=== PATIENT | female | born 1945 | race Caucasian/White ===

== ENCOUNTER 2017-01-23 07:02 | Emergency (ER) | payer MEDICARE ==
[2017-01-23 07:26] VITALS: BP 82/50
--- NOTE | 2017-01-23 07:44 | UC ---
General HPI - HPI Summary HPI Summary: The patient comes in today for: 1. "I think I have Lyme disease:" Onset: 3 weeks ago. Palliative/provocative: Nothing makes her symptoms better or worse. Quality: Lightheadedness, near-syncope. She states that states that she had left knee pain. The pain is "like someone is gently touching me." Region: Left knee Severity: No pain. Time: Constant knee sensation. Associated symptoms: Event: She states that about a month ago, she found two ticks on her about a day apart from the other. She thinks that they were only on her for no more 4 hours. She was easily able to take them off. She states that she has joint pain and lightheadedness in the morning. She has had this lightheadedness in the morning (only at that time). She does not have the lightheadedness at any other time. She denies any heart problems before. No palpitations or chest pain. No shortness of breath. She denies any vertigo. However, she feels like she could faint if the feeling got worse. She states that she has tick bites for no more than 12 hours about 9 months ago. She has not had any Lyme blood tests before. Blood pressure: She states that her usual blood pressure reading is 80/ 60. She states that she has had this "all my life." Dizziness: She also complains of "dizziness" in the morning. Pressing her for what this means, she was able to say that she feels like she has a "seriously light malaise." She only wants blood tests for Lyme disease today. She states that she does not have any rashes at this time. * - History of Current Complaint Chief Complaint: UCLowerExtremity Stated Complaint: POSSIBLE LYME DISEASE Time Seen by Provider: 01/23/17 07:30 Hx Obtained From: Patient - Allergy/Home Medications Allergies/Adverse Reactions: Allergies Allergy/AdvReac Type Severity Reaction Status Date / Time sugar Allergy Makes Uncoded 01/23/17 07:18 patient cranky PMH/Surg Hx/FS Hx/Imm Hx Previously Healthy: Yes Endocrine History Of: Denies: Diabetes, Thyroid Disease, Hyperthyroidism, Hypothyroidism, Dyslipidemia Cardiovascular History Of: Denies: Cardiac Disorders, Hypertension, Pacemaker/ICD, Myocardial Infarction , Congestive Heart Failure, Atrial Fibrillation, Deep Vein Thrombosis, Bleeding Disorders Respiratory History Of: Denies: COPD, Asthma, Bronchitis, Pneumonia, Pulmonary Embolism GI/ History Of: Denies: Gastroesophageal Reflux, Ulcer, Gastrointestinal Bleed, Gall Bladder Disease, Kidney Stones, Diverticulitis, Renal Disease, Urosepsis Neurological History Of: Denies: TIA, CVA, Dementia, Seizures, Migraine Psychological History Of: Denies: Anxiety, Depression, Bipolar Disorder, Schizophrenia, Post Traumatic Stress Disorder Cancer History Of: Denies: Lung Cancer, Colorectal Cancer, Breast Cancer, Prostate Cancer, Cervical Cancer Other History Of: Negative For: HIV, Hepatitis B, Hepatitis C, Anticoagulant Therapy - Surgical History Surgical History: Yes Surgery Procedure, Year, and Place: Laproscopically tied her bilateral fallopian tubes - Family History Known Family History: Positive: Cardiac Disease Negative: Hypertension - Social History Occupation: Employed Full-time Alcohol Use: None Substance Use Type: None Smoking Status (MU): Never Smoked Tobacco Review of Systems Constitutional: Negative Skin: Negative Eyes: Negative ENT: Negative Respiratory: Negative Cardiovascular: Negative Gastrointestinal: Negative Genitourinary: Negative All Other Systems Reviewed And Are Negative: Yes Physical Exam Triage Information Reviewed: Yes Appearance: Well-Appearing, No Pain Distress, Well-Nourished Vital Signs: Initial Vital Signs Temp 98.4 F 01/23/17 07:13 Pulse 72 01/23/17 07:13 Resp 14 01/23/17 07:13 BP 82/50 01/23/17 07:13 Pulse Ox 99 01/23/17 07:13 Vital Signs Reviewed: Yes Eyes: Positive: Conjunctiva Clear. Negative: Discharge ENT: Positive: Hearing grossly normal. Negative: Pharyngeal erythema, Nasal congestion, Nasal drainage, TM bulging, TM dull, TM red, Tonsillar swelling, Tonsillar exudate Dental: Negative: Gross Decay/Caries @, Dental Fracture @ Neck: Positive: Supple, Nontender, No Lymphadenopathy, Other: - No carotid bruits. Carotid pulses were 2+/2 x 2.. Negative: Nuchal Rigidity Respiratory: Positive: Chest non-tender, Lungs clear, No respiratory distress, No accessory muscle use. Negative: Crackles, Wheezing Cardiovascular: Positive: RRR, No Murmur Abdomen Description: Positive: Nontender, No Organomegaly, Soft. Negative: Distended, Guarding Musculoskeletal: Positive: Strength Intact, ROM Intact, No Edema Neurological: Positive: Alert, Muscle Tone Normal Psychological: Positive: Age Appropriate Behavior, Consolable Skin: Negative: rashes, breakdown Course/Dx - Course Course Of Treatment: The patient was told that I was concerned of her low blood pressure, and her complaints of near-syncope. However, she declined my recommendation for orthostatic blood pressure readings, EKG, and going to the ER. - Differential Dx - Multi-Symptom Provider Diagnoses: hypotension. Near syncope. tick bite Discharge - Discharge Plan Condition: Stable Disposition: HOME Patient Education Materials: Lyme Disease (ED), Tick Bite (ED), Near Syncope ( ED) Referrals: Louisa Madera MD [Primary Care Provider] - As Soon As Possible (If you are not going to the ER as recommended, please reconsider if you get worse. Please see your primary care provider as soon as you can for a follow-up on your symptoms.)
== END 2017-01-23 08:15 | disposition home or self-care (01) ==
LOC: UCEAST 07:02
DX: I95.9 Hypotension, unspecified (principal); R55 Syncope and collapse; T14.8 Other injury of unspecified body region; W57.XXXA Bitten or stung by nonvenomous insect and other nonvenomous arthropods, initial encounter; Y93.9 Activity, unspecified; Y99.9 Unspecified external cause status; M25.562 Pain in left knee
CPT/HCPCS: 86618; 99211; G0463

== ENCOUNTER 2019-10-03 07:02 | Emergency (ER) | payer MEDICARE ==
[2019-10-03 07:16] VITALS: BP 109/51
--- NOTE | 2019-10-03 08:04 | UC ---
Knee Pain HPI - HPI Summary HPI Summary: The patient is a 74-year-old female that is 2 weeks status post an injury to her right knee. She states that a large dog clipped her on the lateral aspect of her knee. Initially she had considerable swelling. Her swelling is gone down markedly but she stills walking with a limp. She states that prolonged walking as well as prolonged standing for the most uncomfortable for her. She has been able to navigate stairs. On occasion it feels like her knee will buckle. She denies any prior serious injury to that right knee. - History of Current Complaint Chief Complaint: UCLowerExtremity Stated Complaint: KNEE INJURY Time Seen by Provider: 10/03/19 07:31 Hx Obtained From: Patient Onset/Duration: Gradual Onset, Lasting Weeks - two Severity Initially: Moderate Severity Currently: Mild Pain Intensity: 3 Pain Scale Used: 0-10 Numeric Character: Aching Aggravating Factor(s): Prolonged Standing, Other - prolonged walking Alleviating Factor(s): Rest Associated Signs And Symptoms: Positive: Swelling Able to Bear Weight: Yes Legs: 1 - pain here - Allergies/Home Medications Allergies/Adverse Reactions: Allergies Allergy/AdvReac Type Severity Reaction Status Date / Time sugar Allergy Makes Uncoded 01/23/17 07:18 patient cranky Home Medications: Home Medications Cbd 2 oral.conc PO 10/03/19 [History] PMH/Surg Hx/FS Hx/Imm Hx Previously Healthy: Yes Other History Of: Negative For: HIV, Hepatitis B, Hepatitis C, Anticoagulant Therapy - Surgical History Surgical History: Yes Surgery Procedure, Year, and Place: Laproscopically tied her bilateral fallopian tubes - Family History Known Family History: Positive: Cardiac Disease, Non-Contributory Negative: Hypertension - Social History Alcohol Use: None Substance Use Type: None Smoking Status (MU): Never Smoked Tobacco Review of Systems All Other Systems Reviewed And Are Negative: Yes Constitutional: Positive: Negative Skin: Positive: Negative Eyes: Positive: Negative ENT: Positive: Negative Respiratory: Positive: Negative Cardiovascular: Positive: Negative Gastrointestinal: Positive: Negative Genitourinary: Positive: Negative Motor: Positive: Negative Neurovascular: Positive: Negative Musculoskeletal: Positive: Arthralgia - right knee Neurological: Positive: Negative Psychological: Positive: Negative Physical Exam Triage Information Reviewed: Yes Appearance: Well-Appearing, No Pain Distress, Well-Nourished Vital Signs: Initial Vital Signs Temp 99.7 F 10/03/19 07:11 Pulse 81 10/03/19 07:11 Resp 16 10/03/19 07:11 BP 109/51 10/03/19 07:11 Pulse Ox 100 10/03/19 07:11 Vital Signs Reviewed: Yes Eyes: Positive: Conjunctiva Clear ENT: Positive: Hearing grossly normal. Negative: Nasal congestion, Nasal drainage, Trismus, Muffled voice, Hoarse voice Dental Exam: Normal Neck: Positive: Supple, Nontender Respiratory: Positive: Lungs clear, Normal breath sounds, No respiratory distress, No accessory muscle use Cardiovascular: Positive: RRR, No Murmur Musculoskeletal: Positive: ROM Intact, No Edema Neurological: Positive: Alert, Other: - right knee- FROM, stable joint, no effusion, tender laterally , distal n/v intact Psychological Exam: Normal Skin Exam: Normal Diagnostics - Radiology No standard instances Radiology Interpretation Completed By: Radiologist Summary of Radiographic Findings: IMPRESSION: COMMINUTED SLIGHTLY DEPRESSED FRACTURE OF THE LATERAL TIBIAL PLATEAU. CT IMAGING MAY BE HELPFUL IN FURTHER CHARACTERIZATION. Knee Pain Course/Dx - Course Course Of Treatment: I informed the patient of her fracture and that she should get a CT of the right knee and should follow up with an orthopedist as this could potentially need surgery. She refused stating she does not care much for doctors and that she would not follow up with an orthopedist. She refuses a CT. She verbalizes understanding that this fracture involves the articular surface of the joint and improver healing could result in chronic knee problems She does desire a knee immobilizer - Differential Dx/Diagnosis Provider Diagnosis: Closed fracture of lateral portion of right tibial plateau Discharge ED - Sign-Out/Discharge Documenting (check all that apply): Patient Departure All imaging exams completed and their final reports reviewed: Yes - Discharge Plan Condition: Stable Disposition: HOME Patient Education Materials: Knee Immobilizer (ED), Swollen Knee Joint (ED) Referrals: Chip Dalton MD [Medical Doctor] - As Soon As Possible (Should you change your mind please seek orthopedic follow up with this group) Additional Instructions: IMPRESSION: COMMINUTED SLIGHTLY DEPRESSED FRACTURE OF THE LATERAL TIBIAL PLATEAU. CT IMAGING MAY BE HELPFUL IN FURTHER CHARACTERIZATION. As discussed the standard of care for this injury would be a CT and follow up with an orthopedist. - Billing Disposition and Condition Condition: STABLE Disposition: Home
== END 2019-10-03 08:30 | disposition home or self-care (01) ==
LOC: UCEAST 07:02
DX: S82.141A Displaced bicondylar fracture of right tibia, initial encounter for closed fracture (principal); Z91.018 Allergy to other foods; X58.XXXA Exposure to other specified factors, initial encounter; Y92.9 Unspecified place or not applicable
CPT/HCPCS: 99212; G0463